=== PATIENT | male | born 1945 | race Caucasian/White ===

== ENCOUNTER → 2017-05-26 | Outpatient (CLI) | payer OTHER, MEDICARE ==
[~2017-05-26] MED LIST: LIDOCAINE 1% 300 MG/30 ML SDV ONE
== END ==
LOC: FIMAGING 12:15
PROVIDERS: ATTEND Internal Medicine
PROC: 0G9K3ZX Drainage of Thyroid Gland, Percutaneous Approach, Diagnostic (ICD-10-PCS; principal; 2017-05-26)
DX: E04.1 Nontoxic single thyroid nodule (principal)

== ENCOUNTER → 2018-06-03 | Day surgery (SDC) | payer OTHER, MEDICARE ==
[~2018-06-03] MED LIST changes: +ALBUTEROL 3 ML DEYVIAL IH PRN; +ATROPINE SULFATE 1 MG/10 ML SYR IVP ONE; +HYDROCODONE/APAP 5/325 TAB PO PRN; -LIDOCAINE 1% 300 MG/30 ML SDV ONE; +LIDOCAINE 2% 2 ML INJ ONE; +MIDAZOLAM 2 MG/2 ML VIAL ONE; +NALOXONE HCL 0.4 MG/ML INJ IVP PRN; +NS 500 ML IV ONE; +PROPOFOL 200 MG/20 ML VIAL ONE; +fentaNYL 100 MCG/2 ML INJ IVP PRN
--- NOTE | 2018-06-03 12:54 | PDANEPAE ---
ANE History of Present Illness 72 year old with 1 week history of A-fib for DAVID and cardioversion. History of Ablation 3 years ago. ANE Past Medical History - Pulmonary History Hx Oxygen in Use at Home: No Hx Sleep Apnea: No - Endocrine History Hx Diabetes: No - Chronic Pain History Chronic Pain: No ANE Review of Systems Review of systems is: negative Review of Systems: ANE Patient History - Allergies Allergies/Adverse Reactions: No Known Allergies Allergy (Unverified 02/22/11 07:24) - Home Medications Home Medications: ALLOPURINOL [Allopurinol 300 mg] 150 mg PO DAILY 02/22/11 [Last Taken 03/28/16] Levothyroxine Sodium [SYNTHROID] 137 mcg PO DAILY 02/22/11 [Last Taken 03/28/16] Alfuzosin HCl [Uroxatral 10 MG] 10 mg PO DAILY18 09/27/14 [Last Taken 03/27/16] Atorvastatin Calcium [Lipitor 40 mg (*)] 40 mg PO DAILY 09/27/14 [Last Taken 05/06] Cholecalciferol (Vitamin D3) [Vitamin D3] 2,000 unit PO DAILY 09/27/14 [Last Taken 03/28/16] Herbals/Supplements -Info Only 1 ea PO DAILY 09/27/14 [Last Taken 03/28/16] Niacin [Niacin 500 mg (*)] 500 mg PO HS 09/27/14 [Last Taken 03/27/16] Omeprazole [Prilosec] 40 mg PO DAILY 09/27/14 [Last Taken 03/28/16] Aspirin [Aspirin 81mg (*)] 81 mg PO HS 03/28/16 [Last Taken 03/27/16] Cyanocobalamin (Vitamin B-12) [Vitamin B-12] 500 mcg PO DAILY 03/28/16 [Last Taken 03/28/16] Holcomb-3 Fatty Acids [Fish Oil 1000 mg (*)] 1,000 mg PO BID 03/28/16 [Last Taken 03/28/16] Testosterone [Androgel 1% pump] 1 nimesh TP DAILY 03/28/16 [Last Taken 03/28/16] diphenhydrAMINE [Benadryl 25 MG (*)] 25 mg PO HS PRN 03/28/16 [Last Taken ] - Smoking Hx Smoking Status: Former smoker ANE Physical Exam - Airway Neck exam: FROM Mallampati Score: Class 2 Mouth exam: normal dental/mouth exam - Pulmonary Pulmonary: no respiratory distress - Cardiovascular Cardiovascular: irregularly irregular - ASA Status ASA Status: II ANE Anesthesia Plan Anesthesia Plan: MAC
[2018-06-03 13:08] LABS: INR 1.12 (0.83-1.16); PROTIME(PATIENT) 14.6 SEC (12.0-15.0)
--- NOTE | 2018-06-03 14:03 | PDHPUP ---
History & Physical Update H&P update statement: This history and physical update is based on an assessment of the patient which was completed after admission or registration (within 24 hours), but prior to the surgery/procedure. H&P update: H&P reviewed & patient examined, no change in patient's condition since H&P completed
--- NOTE | 2018-06-03 14:13 | PDTEE1 ---
DAVID Cardioversion Procedure Procedure: electrical cardioversion, transesophageal echo Indications: atrial fibrillation Consent: signed and in chart Anticoagulation: eliquis Procedural Details: Pads were placed in anterior-posterior position. DAVID probe was advanced and standard images obtained. There is no evidence of left atrial or left atrial appendage thrombus. Synchronized cardioversion attempt #1: 200J Results: normal sinus rhythm Conclusions: successful DAVID cardioversion Patient Problems: Problems Problem Status Onset Atrial fibrillation and flutter Acute Left leg weakness Acute
--- NOTE | 2018-06-03 14:26 | POSTANESTH ---
Post Anesthetic Evaluation Cardiovascular Status: Normal, Stable Respiratory Status: Normal, Stable Level of Consciousness/Mental Status: Mildly Sleepy, Arousable Pain Control: Adequate, Prn Tx Ordered Nausea/Vomiting Control: Adequate, Prn Tx Ordered Complications Possibly Related to Anesthesia: None Noted
--- NOTE | 2018-06-03 15:21 | CPEKG ---
Test Reason : OPEN Blood Pressure : / mmHG Vent. Rate : 065 BPM Atrial Rate : 065 BPM P-R Int : 209 ms QRS Dur : 108 ms QT Int : 423 ms P-R-T Axes : 054 050 002 degrees QTc Int : 440 ms Sinus rhythm Confirmed by Uriel Johnson ([id number]) on 06/03/2018 3:21:23 PM Referred By: Confirmed By:Uriel Johnson
--- NOTE | 2018-06-03 16:31 | ECHO ---
[email or web address] [address] [address] Main: [phone] Fax: Transesophageal Echocardiography Name: SHIRLEY BYRD MR#: [id number] Study Date: 06/03/2018 Study Time: 12:57 PM Date of : 1945 Age: 72 year(s) Height: ( ) Weight: ( ) BSA: Gender: Male Examination: DAVID Indication: Pre Cardioversion Image Quality: Adequate Contrast: Requested by: Ramone Saba Heart Rate: Rhythm: BP: / Procedure Staff General Surgeon: Alena Morales [facility] Reading Physician: Ramone Sbaa MD Requesting Provider: DAVID Exam Details Conclusions: The patient was in atrial fibrillation at the time of the study. The images were difficult to obtain. The ejection fraction appears to be normal estimated at 60-65% with normal wall motion. The left atrial appendage is free of thrombus. Valvular anatomy appears to be normal without significant valvular stenosis or insufficiency. Following the procedure the patient underwent cardioversion with presybeterian of sinus rhythm. Measurements: Chambers Valvular Assessment AV/MV Valvular Assessment TV/PV Normal Normal Normal Name Value Range Name Value Range Name Value Range Additional Measurements: Findings: Left Ventricle: Normal size left ventricle. Normal global systolic LV function. Right Ventricle: Normal size right ventricle. Normal RV function. Left Atrial Appendage: The left atrial appendage is unilobular. Good color flow doppler in the left atrial appendage. Normal PW-Doppler flow pattern. No thrombus in left appendage. Mitral Valve: Mild mitral valve regurgitation is present. No mitral stenosis is present. Patient: SHIRLEY BYRD Study Date: 06/03/2018 Page 1 of 2 12:57 PM Aortic Valve: The aortic valve is tri-leaflet. Mild aortic valve regurgitation is present. No aortic valve stenosis is present. l1n (No Signature Object) Patient: SHIRLEY BYRD Study Date: 06/03/2018 Page 2 of 2 12:57 PM [id number]
== END | disposition home or self-care (01) ==
LOC: FCATH 12:14
PROVIDERS: ATTEND Internal Medicine Cardiovascular Disease
PROC: B245ZZ4 Ultrasonography of Left Heart, Transesophageal (ICD-10-PCS; principal; 2018-06-03)
PROC: 5A2204Z Restoration of Cardiac Rhythm, Single (ICD-10-PCS; principal; 2018-06-03)
DX: I48.91 Unspecified atrial fibrillation (principal)
CPT/HCPCS: J2250; J2704

== ENCOUNTER → 2018-07-22 | Outpatient (CLI) | payer OTHER, MEDICARE | LOC: BHFA 09:30 | PROVIDERS: ATTEND Nurse Practitioner Adult Health | DX: I48.92 Unspecified atrial flutter (principal); R42 Dizziness and giddiness ==